=== PATIENT | male | born 1990 | race Two or more races ===

== ENCOUNTER 2019-10-25 13:54 | Emergency (ER) | payer OTHER ==
[~2019-10-25] VITALS: Ht 170.2 cm; Wt 104.3 kg
[2019-10-25] MEDS ORDERED: HYDRALAZINE HCL25 MG PO (14:13)
[2019-10-25] MEDS ORDERED: TOPROL XL25 M1 (14:13)
[2019-10-25] MEDS ORDERED: NIFEDIPINE20 MG (14:13)
[2019-10-25] MEDS ORDERED: LOSARTAN-HCTZ1 EAC1 (14:13)
[2019-10-25] MEDS ORDERED: MICROZIDE12.5 MG (14:14)
== END 2019-10-25 16:40 | disposition home or self-care (01) ==
LOC: ER 13:54
DX: I16.0 Hypertensive urgency (principal); I10 Essential (primary) hypertension; R31.29 Other microscopic hematuria; R10.2 Pelvic and perineal pain

== ENCOUNTER 2024-07-02 21:05 | Emergency (ER) | payer OTHER ==
[~2024-07-02] VITALS: Ht 170.2 cm; Wt 122.5 kg
[~2024-07-02 21:05] MED LIST: HYDRALAZINE HCL25 MG PO; LOSARTAN-HCTZ1 EAC1; MICROZIDE12.5 MG; NIFEDIPINE20 MG; TOPROL XL25 M1
[2024-07-02] MEDS ORDERED: ONDANSETRON HCL 2 MG/ML VIAL ONE (21:41)
[2024-07-02] MEDS ORDERED: KETOROLAC TROMETHAMINE 60 MG VIAL IM ONE ×2 (21:41→21:45)
[2024-07-02] MEDS ORDERED: FAMOTIDINE/PF 20 MG/2 ML VIAL ONE (21:41)
[2024-07-02] MEDS ORDERED: 0.9 % SODIUM CHLORIDE 1,000 ML IV ONE (21:45)
[2024-07-02] MEDS ORDERED: ONDANSETRON HCL 2 MG/ML VIAL IV ONE (21:45)
[2024-07-02] MEDS ORDERED: FAMOtidine 10 MG/ML (4ML VIAL) IV ONE (21:45)
[2024-07-02 22:13] LABS: HEMATOCRIT 41.6 % (39.0-48.0); HEMOGLOBIN 14.7 g/dL (13-16.00); MEAN CELL VOLUME 80.9 fL (80.0-100.00); MEAN CORPUSCULAR HEMOGLOBIN 28.5 pg (27.00-32.0); MEAN CORPUSCULAR HGB CONC 35.3 g/dl (32.0-36.0); PLATELET COUNT 264 K/uL (150-450); RED BLOOD COUNT 5.14 M/uL (4.00-6.00); RED CELL DISTRIBUTION WIDTH 14.9 % (11.5-14.5)
[2024-07-02 22:33] LABS: ALBUMIN 4.3 gm/dL (3.4-5.0); BILIRUBIN TOTAL 1.38 mg/dL (0.3-1.2); CALCIUM 10.3 mg/dL (8.5-10.1); GFR 84.55; GLOBULINA 4.2 G/DL (2.4-3.5); TOTAL PROTEIN 8.5 gm/dL (6.4-8.2)
[2024-07-02 22:35] LABS: POTASSIUM 2.75 mEq/L (3.5-5.1)
[2024-07-02] MEDS ORDERED: POTASSIUM CHLORIDE/NACL 0.9% 20 MEQ/1,000 ML PIGGYBAG IV ONE (23:45)
[2024-07-03] MEDS ORDERED: POTASSIUM CHLORIDE/NACL 0.9% 20 MEQ/1,000 ML PIGGYBAG IV ONE (00:03)
[2024-07-03 00:53] LABS: CALCIUM 9.7 mg/dL (8.5-10.1); CREATININE SERUM 1.05 mg/dL (0.70-1.30); GFR 79.92
[2024-07-03 01:11] LABS: POTASSIUM 2.76 mEq/L (3.5-5.1)
[2024-07-03] MEDS ORDERED: POTASSIUM CHLORIDE IN 0.9%NACL 40 MEQ/1,000 ML PIGGYBAG IV ONE (01:15)
[2024-07-03 07:14] VITALS: BP 141/86; O2SAT 97
[2024-07-03] MEDS ORDERED: POTASSIUM BICARBONATE/CIT AC 25 MEQ TABLET.EFF PO STA (10:00)
== END 2024-07-03 12:54 | disposition home or self-care (01) ==
LOC: ER 21:07
PROVIDERS: General Practice
DX: R10.13 Epigastric pain (principal); E87.6 Hypokalemia; I10 Essential (primary) hypertension; Z88.8 Allergy status to other drugs, medicaments and biological substances

== ENCOUNTER 2024-10-10 20:42 | Emergency (ER) | payer OTHER ==
[~2024-10-10] VITALS: Ht 170.2 cm; Wt 131.5 kg
[2024-10-10] MEDS ORDERED: CIPROFLOXACIN IN 5 % DEXTROSE 400 MG/200 ML PIGGYBAG IV ONE ×2 (21:45→23:18)
[2024-10-10] MEDS ORDERED: KETOROLAC TROMETHAMINE 60 MG VIAL IM ONE ×2 (21:45→23:29)
[2024-10-10] MEDS ORDERED: BARIUM SULFATE 450 ML ORAL.SUSP PO ONE (23:18)
[2024-10-10 23:53] LABS: HEMATOCRIT 43.5 % (39.0-48.0); HEMOGLOBIN 14.9 g/dL (13-16.00); MEAN CELL VOLUME 83.1 fL (80.0-100.00); MEAN CORPUSCULAR HEMOGLOBIN 28.5 pg (27.00-32.0); MEAN CORPUSCULAR HGB CONC 34.3 g/dl (32.0-36.0); PLATELET COUNT 258 K/uL (150-450); RED BLOOD COUNT 5.23 M/uL (4.00-6.00); RED CELL DISTRIBUTION WIDTH 14.8 % (11.5-14.5)
[2024-10-11 00:12] LABS: INR 0.95; PARTIAL THROMBOPLASTIN TIME 23.4 SECONDS (22.0-34.0); PROTHROMBIN TIME 10.4 SECONDS (9.0-11.5)
[2024-10-11 00:20] LABS: ALBUMIN 3.8 gm/dL (3.4-5.0); BILIRUBIN TOTAL 0.94 mg/dL (0.3-1.2); CALCIUM 9.6 mg/dL (8.5-10.1); CREATININE SERUM 1.09 mg/dL (0.70-1.30); GFR 76.54; GLOBULINA 4.6 G/DL (2.4-3.5); POTASSIUM 3.07 mEq/L (3.5-5.1); TOTAL PROTEIN 8.4 gm/dL (6.4-8.2)
[2024-10-11 00:28] LABS: URINE APPEARANCE Clear; URINE BILIRRUBIN Negative (NEGATIVE); URINE BLOOD Negative; URINE COLOR Yellow; URINE GLUCOSE Negative (NEGATIVE); URINE KETONE Negative (NEGATIVE); URINE LEUKOCYTE Negative; URINE NITRATE Negative; URINE UROBILINOGEN 0.2 E.U./dl
[2024-10-11 00:32] LABS: URINE BACTERIA 12.2 uL (0.0-1933); URINE EPITHELIAL CELLS 2.6 uL (0.0-38.8); URINE RBC 22.2 uL (0.0-20.8); URINE WBC 2.2 uL (0.0-23.2)
[2024-10-11 00:36] LABS: URINE PROTEIN 100 (NEGATIVE)
== END 2024-10-11 04:43 | disposition home or self-care (01) ==
LOC: ER 20:44
PROVIDERS: General Practice
DX: R10.9 Unspecified abdominal pain (principal); I10 Essential (primary) hypertension; Z88.8 Allergy status to other drugs, medicaments and biological substances; K76.0 Fatty (change of) liver, not elsewhere classified

== ENCOUNTER 2024-11-27 16:27 | Emergency (ER) | payer OTHER ==
[~2024-11-27] VITALS: Ht 170.2 cm; Wt 131.5 kg
[2024-11-27] MEDS ORDERED: FAMOTIDINE/PF 20 MG in 0.9 % SODIUM CHLORIDE 8 ML IV PUSH STA (17:23)
[2024-11-27] MEDS ORDERED: ONDANSETRON HCL 2 MG/ML VIAL IV ONE (17:30)
[2024-11-27] MEDS ORDERED: KETOROLAC TROMETHAMINE 30 MG VIAL IV ONE ×2 (17:30→21:15)
[2024-11-27] MEDS ORDERED: 0.9 % SODIUM CHLORIDE 1,000 ML IV SCH (17:30)
[2024-11-27] MEDS ORDERED: KETOROLAC TROMETHAMINE 30 MG VIAL ONE ×2 (17:43→21:21)
[2024-11-27] MEDS ORDERED: FAMOTIDINE/PF 20 MG/2 ML VIAL ONE (17:44)
[2024-11-27] MEDS ORDERED: ONDANSETRON HCL 2 MG/ML VIAL ONE (17:44)
[2024-11-27 18:00] LABS: HEMOGLOBIN 14.4 g/dL (13-16.00); MEAN CELL VOLUME 81.6 fL (80.0-100.00); MEAN CORPUSCULAR HEMOGLOBIN 28.6 pg (27.00-32.0); PLATELET COUNT 252 K/uL (150-450); RED BLOOD COUNT 5.02 M/uL (4.00-6.00); RED CELL DISTRIBUTION WIDTH 15.4 % (11.5-14.5)
[2024-11-27 18:23] LABS: ALBUMIN 3.7 gm/dL (3.4-5.0); BILIRUBIN TOTAL 1.36 mg/dL (0.3-1.2); BILIRUBIN,CONJUGATED 0.21 mg/dL (0.0-0.2); BILIRUBIN,UNCONJUGATED 1.15 mg/dL (0.0-0.6); CALCIUM 9.6 mg/dL (8.5-10.1); CREATININE SERUM 0.9 mg/dL (0.70-1.30); GFR 95.48; GLOBULINA 4.5 G/DL (2.4-3.5); POTASSIUM 3.05 mEq/L (3.5-5.1); TOTAL PROTEIN 8.2 gm/dL (6.4-8.2)
[2024-11-27] MEDS ORDERED: POTASSIUM CHLORIDE 10 MEQ CAPSULE PO ONE (20:30)
[2024-11-27] MEDS ORDERED: PEPCID AC20 MG PO (21:02)
[2024-11-27] MEDS ORDERED: LEVSIN/SL0.125 MG SL (21:02)
[2024-11-27] MEDS ORDERED: ZOFRAN8 MG PO (21:02)
[2024-11-27] MEDS ORDERED: DICLOFENAC SODI75 MG PO (21:27)
== END 2024-11-27 21:37 | disposition home or self-care (01) ==
LOC: ER 16:30
PROVIDERS: General Practice
DX: R10.9 Unspecified abdominal pain (principal); Z88.8 Allergy status to other drugs, medicaments and biological substances; I10 Essential (primary) hypertension